=== PATIENT | male | born 1995 | race Caucasian/White ===

== ENCOUNTER → 2020-04-02 | Outpatient (CLI) | payer BC ==
[~2020-04-02] VITALS: Ht 172.7 cm; Wt 97.7 kg
[~2020-04-02] MED LIST: GADOBUTROL 7.5 MMOL/7.5 ML (GADAVIST) VIAL IV ONE; IOHEXOL 300 MG/ML 50 ML (OMNIPAQUE 300) VIAL IV ONE
--- NOTE | 2020-04-02 15:39 | Diagnostic Imaging Report ---
EXAMINATION: Magnetic resonance imaging of the pelvis and left hip with intra-articular contrast. DATE: April 02, 2020. COMPARISON: Left hip arthrogram April 02, 2020. INDICATION: 25-year-old male, left hip pain. TECHNIQUE: Magnetic Resonance Imaging sequences were performed of the pelvis and left hip with intra-articular contrast. FINDINGS: TENDONS AND MUSCLES: The gluteus piter muscles and their origins and insertions are intact bilaterally. The tendons and muscles of the greater trochanter (gluteus minimus, piriformis, and gluteus medius) are intact bilaterally. Both common hamstring attachments on the ischial tuberosities are intact and the extensor muscles of the thigh are intact. The visualized portions of the flexors and adductor muscles of the thigh and their attachments on the pelvis and hips are intact. Both iliopsoas and iliacus muscles are intact. The bilateral iliopsoas tendons are intact. HIPS AND SACROILIAC JOINTS: The left hip alpha angle is measured at 60 degrees. There is no discretely identified labral tear. There is no identified paralabral cyst. There is no identified cartilage defect. There is no identified fluid filled right hip labral tear or paralabral cyst on large field of view examination. There is no right hip joint effusion. The sacroiliac joints are unremarkable in appearance. LUMBAR SPINE: There is mild disc height loss at L5-S1. BONE: There is no acute fracture, bone contusion, or evidence of osteonecrosis. BURSAE AND SOFT TISSUES: The bursae and soft tissues surrounding the pelvis and hips are within normal limits. IMPRESSION: 1. 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 2. No identified left hip labral tear or paralabral cyst. Grossly intact articular cartilage. 3. Intact muscles and tendons. 4. No acute fracture, bone contusion, or evidence of osteonecrosis. Dictated by: Dictated on workstation # [id number]
--- NOTE | 2020-04-02 15:48 | Diagnostic Imaging Report ---
INDICATION: Left hip pain. TECHNIQUE: The patient was brought to the procedure room and placed on the table in the supine position. The skin of the left hip was prepped and draped in the usual sterile fashion. A small amount of 1% lidocaine was utilized for local anesthesia. A 20-gauge needle was advanced into the left hip at the femoral head/neck junction laterally. A 15 mL solution of iodinated contrast, normal saline, and gadolinium was injected under fluoroscopic observation. 25 seconds of fluoroscopic time was utilized. The needle was withdrawn and hemostasis was obtained. The patient tolerated the procedure well and was sent to MRI in satisfactory condition. IMPRESSION: Successful left hip injection of gadolinium contrast solution using fluoroscopy. Dictated by: Dictated on workstation # [id number]
== END ==
LOC: RAD 12:52
PROVIDERS: ATTEND Nurse Practitioner
DX: S73.192A Other sprain of left hip, initial encounter (principal)
CPT/HCPCS: 27093; 73525; 73722